=== PATIENT | male | born 1990 | race African-American/Black ===

== ENCOUNTER 2019-06-16 17:34 | Emergency (ER) | payer OTHER ==
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
[2019-06-16] MEDS ORDERED: Ketorolac Tromethamine 60 MG/2 ML VIAL ONE (19:10)
== END 2019-06-16 19:22 | disposition home or self-care (01) ==
LOC: ERS 17:34
DX: M54.5 Low back pain (principal); I10 Essential (primary) hypertension; V89.2XXA Person injured in unspecified motor-vehicle accident, traffic, initial encounter
CPT/HCPCS: 72131; J1885